=== PATIENT | male | born 1995 | race Caucasian/White ===

== ENCOUNTER → 2017-07-01 | Outpatient (CLI) | payer MEDICARE ==
[~2017-07-01] MED LIST: AMOXICILLIN500 M2 PO; AMOXICILLIN500 MG PO; AUGMENTIN 875875 MG PO; BENZTROPINE MESY1 MG PO; CLEOCIN150 MG PO; FLEXERIL10 MG PO; FLEXERIL5 MG PO; GABAPENTIN400 MG PO; HALDOL5 MG PO; HYDROCODONE BIT1 T11 PO; IBU800 M1 PO; IBUPROFEN600 MG PO; INVEGA SUSTENN234 MG IM; MOTRIN800 MG PO; Motrin,Rufen800 MG PO; NKHM; PREDNISONE20 M1 PO; TEGRETOL200 MG PO; ULTRAM50 MG PO; ZOFRAN4 MG PO; Zofran4 MG PO
[2017-07-01 11:02] LABS: BASO # 0.1 10*3/uL (0.0-0.1); BASO % 0.8 % (0.0-1.0); EOS # 0.3 10*3/uL (0.0-0.4); EOS % 3.1 % (1.0-4.0); HEMATOCRIT 44.6 % (42.0-52.0); HEMOGLOBIN 14.9 g/dl (14.0-18.0); LYMPH # 2.6 10*3/uL (1.3-4.4); LYMPH % 32.8 % (27.0-41.0); MEAN CELL VOLUME 87.3 fl (80.0-94.0); MEAN CORPUSCULAR HGB 29.2 pg (27.0-31.0); MEAN CORPUSCULAR HGB CONC 33.4 g/dl (33.0-37.0); MEAN PLATELET VOLUME 10.6 fl (9.6-12.3); MONO # 0.7 10*3/uL (0.1-1.0); MONO % 8.3 % (3.0-9.0); NEUT # 4.4 10*3/uL (2.3-7.9); NEUT % 54.7 % (47.0-73.0); PLATELET COUNT AUTOMATED 218 10*3/uL (130-400); RED BLOOD COUNT 5.11 10*6/uL (4.50-5.90); RED CELL DISTRI WIDTH 12.5 % (0-14.5)
[2017-07-01 11:06] LABS: URINE AMPHETAMINES < 1000 (1000ng/ml); URINE BARBITURATES < 200 (200ng/ml); URINE BENZODIAZEPINES < 200 (200ng/ml); URINE CANNABINOIDS (THC) > 50 (50ng/ml); URINE COCAINE < 300 (300ng/ml); URINE METHADONE < 300 (300ng/ml); URINE OPIATES < 300 (300ng/ml)
[2017-07-01 11:07] LABS: URINE PHENCYCLIDINE < 25 (25ng/ml)
[2017-07-01 11:29] LABS: ALBUMIN 3.9 gm/dl (3.1-4.5); ALKALINE PHOSPHATASE 95 U/L (45-117); BILIRUBIN, DIRECT < 0.1 mg/dL (0.0-0.2); BUN 7 mg/dl (7-24); CHLORIDE 106 mmol/L (98-107); CHOLESTEROL 128 mg/dL (<200); CREATININE 0.72 mg/dL (0.70-1.30); FREE T4 1.24 ng/dl (0.76-1.46); HDL CHOLESTEROL 53 mg/dl (40-60); LDL CHOLESTEROL 57 mg/dL (9-159); POTASSIUM 3.3 mmol/L (3.5-5.1); SGOT/AST 15 IU/L (3-35); SGPT/ALT 17 U/L (12-78); SODIUM 142 mmol/L (136-145); T3 UPTAKE 41 % (31-39); TOTAL PROTEIN 7.7 gm/dL (6.4-8.2); TRIGLYCERIDES 91 mg/dl (<150); VLDL CHOLESTEROL 18 mg/dL (6-40)
== END | disposition home or self-care (01) ==
LOC: LAB 10:25
PROVIDERS: Nurse Practitioner Family
DX: E55.9 Vitamin D deficiency, unspecified (principal); R79.89 Other specified abnormal findings of blood chemistry; Z79.899 Other long term (current) drug therapy

== ENCOUNTER 2017-08-11 08:30 | Emergency (ER) | payer MEDICARE ==
[~2017-08-11] VITALS: Wt 56.7 kg
[2017-08-11 08:41] VITALS: BP 128/74
[2017-08-11 08:50] LABS: BASO # 0.1 10*3/uL (0.0-0.1); BASO % 0.7 % (0.0-1.0); EOS # 0.3 10*3/uL (0.0-0.4); EOS % 2.8 % (1.0-4.0); HEMATOCRIT 44.3 % (42.0-52.0); HEMOGLOBIN 14.9 g/dl (14.0-18.0); LYMPH # 3.2 10*3/uL (1.3-4.4); LYMPH % 35.8 % (27.0-41.0); MEAN CELL VOLUME 87.5 fl (80.0-94.0); MEAN CORPUSCULAR HGB 29.4 pg (27.0-31.0); MEAN CORPUSCULAR HGB CONC 33.6 g/dl (33.0-37.0); MONO # 0.8 10*3/uL (0.1-1.0); MONO % 8.5 % (3.0-9.0); NEUT # 4.6 10*3/uL (2.3-7.9); PLATELET COUNT AUTOMATED 218 10*3/uL (130-400); RED BLOOD COUNT 5.06 10*6/uL (4.50-5.90); RED CELL DISTRI WIDTH 12.9 % (0-14.5); WHITE BLOOD COUNT 8.8 10*3/uL (4.8-10.8)
[2017-08-11 09:07] LABS: ALBUMIN 4.2 gm/dl (3.1-4.5); ALKALINE PHOSPHATASE 86 U/L (45-117); BUN 9 mg/dl (7-24); CHLORIDE 104 mmol/L (98-107); CREATININE 0.75 mg/dL (0.70-1.30); ETHYL ALCOHOL < 3.0 mg/dl (<3); POTASSIUM 3.9 mmol/L (3.5-5.1); SGOT/AST 18 IU/L (3-35); SGPT/ALT 21 U/L (12-78); SODIUM 141 mmol/L (136-145); TOTAL PROTEIN 7.8 gm/dL (6.4-8.2)
[2017-08-11 09:44] LABS: URINE AMPHETAMINES < 1000 (1000ng/ml); URINE BARBITURATES < 200 (200ng/ml); URINE BENZODIAZEPINES < 200 (200ng/ml); URINE CANNABINOIDS (THC) > 50 (50ng/ml); URINE COCAINE < 300 (300ng/ml); URINE METHADONE < 300 (300ng/ml); URINE OPIATES < 300 (300ng/ml)
[2017-08-11 09:45] LABS: URINE PHENCYCLIDINE < 25 (25ng/ml)
[2017-08-11 10:09] LABS: BILIRUBIN NEGATIVE (NEGATIVE); BLOOD NEGATIVE (NEGATIVE); CLARITY CLOUDY (CLEAR); COLOR YELLOW (YELLOW); GLUCOSE NEGATIVE (NEGATIVE); KETONE NEGATIVE (NEGATIVE); LEUKO ESTERASE NEGATIVE (NEGATIVE); NITRITE NEGATIVE (NEGATIVE); SPECIFIC GRAVITY 1.015 (1.005-1.030); UROBILINOGEN 0.2 E.U./dl (0.2-1.0)
[2017-08-11 10:24] LABS: EPITHELIAL CELLS 0-2
== END 2017-08-11 18:48 | disposition short-term general hospital (02) ==
LOC: ED 08:30
PROVIDERS: Emergency Medicine
DX: F25.9 Schizoaffective disorder, unspecified (principal); G89.29 Other chronic pain; G51.0 Bell's palsy; F32.9 Major depressive disorder, single episode, unspecified; F17.200 Nicotine dependence, unspecified, uncomplicated; Z91.030 Bee allergy status; Z79.899 Other long term (current) drug therapy

== ENCOUNTER 2018-02-21 02:09 | Inpatient (IN) | payer MEDICARE ==
[~2018-02-21] VITALS: Ht 162.6 cm; Wt 52.9 kg
[2018-02-21] VITALS (12 sets, daily range): BP systolic 88–110; BP diastolic 40–63
--- NOTE | ~2018-02-21 | CON ---
[place], [place] REPORT OF CONSULTATION NAME: MORALES ALLEN UNIT #: [id number] ROOM: [place] [id number] DOCTOR: ROLANDO JOHNSTON MD BIRTHDATE: [birth year] DOS: 02/21/2018 CHIEF COMPLAINT: "I tried to hurt myself, but I am okay." HISTORY OF PRESENT ILLNESS: This is a 22-year-old male who was admitted after an apparent suicide attempt. The patient took a handful of Zoloft as well as some Haldol. The patient has a lengthy psychiatric history dating back to the age of 3 with multiple suicide attempts, psychiatric admissions and medication trials. He reports ongoing depressive symptoms for the last year, stating that he has been on and off his medicine during this period of time and has not been compliant with followup. Most recently, [facility] The last time he remembers feeling better was approximately a year and a half to two years ago. Complicating matters recently was a recent breakup with a girlfriend and he states that this is one of the things that plunged him deeper into depression and made him impulsively overdosed. He does endorse poor sleep, but has good appetite. He lacks energy and desire to do things. He is motivated; however, to get better and states he would be willing to follow up with Kiarra Cardona and currently denies suicidal thoughts, stating that this was a dumb thing to do and he is willing to attempt to get help again. PAST MEDICAL HISTORY: Remarkable for a significant history of cannabis abuse. He does not drink alcohol. He is a cigarette smoker as well. STRENGTHS: He has good verbal skills. He is healthy and he has a supportive environment. MENTAL STATUS: He is an alert, somewhat somnolent from lack of sleep, but he was actually able to be engaging. He convincingly denies suicidal thoughts and voices positive plans for the future. He does endorse multiple neurovegetative symptoms. He denies theresa or hypomania and currently denies any auditory or visual hallucinations. Memory for the most part is intact. DIAGNOSES: Major depression, recurrent, severe, rule out bipolar disorder, also diagnosed dysthymic disorder and cannabis dependence. PLAN: I will start him on Remeron 15 mg at bedtime. I would recommend that he follow up very quickly with [facility]. Also, he should get a counselor through mental health as well and a director case management. I do not see the need for future psychiatric admission at this time. [place], [place] REPORT OF CONSULTATION NAME: MORALES ALLEN UNIT #: [id number] ROOM: [place] [address] DOCTOR: ROLANDO JOHNSTON MD BIRTHDATE: [birth year] ROLANDO JOHNSTON MD CM:CONSTR:REPORT OF CONSULTATION 102 02/21/182056 interface
[2018-02-21 02:25] LABS: BASO # 0.1 10*3/uL (0.0-0.1); BASO % 0.6 % (0.0-1.0); EOS # 0.2 10*3/uL (0.0-0.4); EOS % 2.7 % (1.0-4.0); HEMATOCRIT 40.3 % (42.0-52.0); HEMOGLOBIN 13.5 g/dl (14.0-18.0); LYMPH # 3.2 10*3/uL (1.3-4.4); LYMPH % 40.3 % (27.0-41.0); MEAN CORPUSCULAR HGB 29.5 pg (27.0-31.0); MEAN CORPUSCULAR HGB CONC 33.5 g/dl (33.0-37.0); MEAN PLATELET VOLUME 10.8 fl (9.6-12.3); MONO # 0.7 10*3/uL (0.1-1.0); MONO % 8.8 % (3.0-9.0); NEUT # 3.8 10*3/uL (2.3-7.9); NEUT % 47.5 % (47.0-73.0); PLATELET COUNT AUTOMATED 168 10*3/uL (130-400); RED BLOOD COUNT 4.58 10*6/uL (4.50-5.90); RED CELL DISTRI WIDTH 12.4 % (0-14.5)
[2018-02-21 02:41] LABS: ACETAMINOPHEN (TYLENOL) < 2.0 ug/ml (10-30); ALKALINE PHOSPHATASE 75 U/L (45-117); BUN 7 mg/dl (7-24); CHLORIDE 108 mmol/L (98-107); ETHYL ALCOHOL < 3.0 mg/dl (<3); POTASSIUM 3.3 mmol/L (3.5-5.1); SGOT/AST 18 IU/L (3-35); SGPT/ALT 18 U/L (12-78); SODIUM 142 mmol/L (136-145); TOTAL PROTEIN 6.9 gm/dL (6.4-8.2)
[2018-02-21 02:45] LABS: BILIRUBIN NEGATIVE (NEGATIVE); BLOOD NEGATIVE (NEGATIVE); CLARITY CLEAR (CLEAR); COLOR YELLOW (YELLOW); GLUCOSE NEGATIVE (NEGATIVE); KETONE NEGATIVE (NEGATIVE); LEUKO ESTERASE NEGATIVE (NEGATIVE); NITRITE NEGATIVE (NEGATIVE); PH 7.5 (5.0-9.0); UROBILINOGEN 0.2 E.U./dl (0.2-1.0)
[2018-02-21 02:50] LABS: BACTERIA 1+; WBC 0-2 wbc/hpf (0-5)
[2018-02-21 02:53] LABS: URINE AMPHETAMINES < 1000 (1000ng/ml); URINE BARBITURATES < 200 (200ng/ml); URINE BENZODIAZEPINES < 200 (200ng/ml); URINE CANNABINOIDS (THC) > 50 (50ng/ml); URINE COCAINE < 300 (300ng/ml); URINE METHADONE < 300 (300ng/ml); URINE OPIATES < 300 (300ng/ml); URINE PHENCYCLIDINE < 25 (25ng/ml)
[2018-02-22] VITALS: BP 92/45
[2018-02-22 04:00] VITALS: BP 98/64
[2018-02-22 06:11] LABS: BASO % 0.7 % (0.0-1.0); EOS # 0.2 10*3/uL (0.0-0.4); EOS % 3.5 % (1.0-4.0); HEMATOCRIT 39.2 % (42.0-52.0); HEMOGLOBIN 12.6 g/dl (14.0-18.0); LYMPH # 3.1 10*3/uL (1.3-4.4); LYMPH % 50.6 % (27.0-41.0); MEAN CELL VOLUME 90.1 fl (80.0-94.0); MEAN CORPUSCULAR HGB CONC 32.1 g/dl (33.0-37.0); MEAN PLATELET VOLUME 11.8 fl (9.6-12.3); MONO # 0.4 10*3/uL (0.1-1.0); MONO % 7.1 % (3.0-9.0); NEUT # 2.3 10*3/uL (2.3-7.9); NEUT % 37.9 % (47.0-73.0); PLATELET COUNT AUTOMATED 141 10*3/uL (130-400); RED BLOOD COUNT 4.35 10*6/uL (4.50-5.90); RED CELL DISTRI WIDTH 12.5 % (0-14.5); WHITE BLOOD COUNT 6.1 10*3/uL (4.8-10.8)
[2018-02-22 06:48] LABS: BUN 4 mg/dl (7-24); CHLORIDE 110 mmol/L (98-107); CHOLESTEROL 103 mg/dL (<200); CREATININE 0.51 mg/dL (0.70-1.30); PHOSPHOROUS 4.1 mg/dL (2.5-4.9); POTASSIUM 3.6 mmol/L (3.5-5.1); SODIUM 146 mmol/L (136-145); TRIGLYCERIDES 79 mg/dl (<150); VLDL CHOLESTEROL 16 mg/dL (6-40)
[2018-02-22 06:58] LABS: FREE T4 1.05 ng/dl (0.76-1.46); HDL CHOLESTEROL 48 mg/dl (40-60); LDL CHOLESTEROL 39 mg/dL (9-159); THYROID STIM HORMONE (HS) 0.887 uIU/ml (0.358-4.75)
[2018-02-22 07:27] LABS: VITAMIN D, 25-HYDROXY 24.3 ng/mL (30-100)
[2018-02-22 08:00] VITALS: BP 96/59
[2018-02-22] MEDS ORDERED: MIRTAZAPINE15 M2 PO (09:04)
== END 2018-02-22 09:25 | disposition home or self-care (01) | DRG 918 ==
LOC: ED 02:09 → EDHOLD 03:23 → ICCU 03:36
PROVIDERS: Emergency Medicine Emergency Medical Services; Internal Medicine
DX: T43.222A Poisoning by selective serotonin reuptake inhibitors, intentional self-harm, initial encounter (principal); E83.51 Hypocalcemia; E87.8 Other disorders of electrolyte and fluid balance, not elsewhere classified; T43.4X2A Poisoning by butyrophenone and thiothixene neuroleptics, intentional self-harm, initial encounter; F25.1 Schizoaffective disorder, depressive type; E87.6 Hypokalemia; D64.9 Anemia, unspecified; R00.0 Tachycardia, unspecified; F12.20 Cannabis dependence, uncomplicated; Z71.6 Tobacco abuse counseling; Y92.89 Other specified places as the place of occurrence of the external cause; Z91.030 Bee allergy status

== ENCOUNTER 2018-03-07 11:14 | Emergency (ER) | payer MEDICARE ==
[~2018-03-07] VITALS: Ht 160 cm; Wt 54.4 kg
[~2018-03-07 11:14] MED LIST changes: +MIRTAZAPINE15 M2 PO
[2018-03-07 11:18] VITALS: BP 117/69
[2018-03-07] MEDS ORDERED: AUGMENTIN 875-875 MG PO (11:49)
== END 2018-03-07 12:28 | disposition home or self-care (01) ==
LOC: ED 11:14
DX: S41.152A Open bite of left upper arm, initial encounter (principal); F12.10 Cannabis abuse, uncomplicated; F17.200 Nicotine dependence, unspecified, uncomplicated; Z91.030 Bee allergy status; W54.0XXA Bitten by dog, initial encounter; Y93.H2 Activity, gardening and landscaping; Y92.099 Unspecified place in other non-institutional residence as the place of occurrence of the external cause; Y99.8 Other external cause status

== ENCOUNTER 2018-03-18 06:22 | Emergency (ER) | payer MEDICARE ==
[~2018-03-18] VITALS: Ht 160 cm; Wt 54.4 kg
[~2018-03-18 06:22] MED LIST changes: +AUGMENTIN 875-875 MG PO
[2018-03-18 06:23] VITALS: BP 113/73
[2018-03-18] MEDS ORDERED: ZITHROMAX250 MG PO (07:55)
== END 2018-03-18 08:34 | disposition home or self-care (01) ==
LOC: ED 06:22
DX: J20.9 Acute bronchitis, unspecified (principal); F17.200 Nicotine dependence, unspecified, uncomplicated; F12.10 Cannabis abuse, uncomplicated; Z91.030 Bee allergy status

== ENCOUNTER 2018-04-24 00:16 | Emergency (ER) | payer MEDICARE ==
[~2018-04-24] VITALS: Ht 160 cm; Wt 54.4 kg
[~2018-04-24 00:16] MED LIST changes: +ZITHROMAX250 MG PO
[2018-04-24 00:17] VITALS: BP 120/60
[2018-04-24 00:54] LABS: BILIRUBIN NEGATIVE (NEGATIVE); BLOOD NEGATIVE (NEGATIVE); CLARITY CLEAR (CLEAR); COLOR YELLOW (YELLOW); GLUCOSE NEGATIVE (NEGATIVE); KETONE NEGATIVE (NEGATIVE); LEUKO ESTERASE NEGATIVE (NEGATIVE); NITRITE NEGATIVE (NEGATIVE); UROBILINOGEN 0.2 E.U./dl (0.2-1.0)
[2018-04-24 01:04] LABS: EPITHELIAL CELLS 0-2; WBC 0-2 wbc/hpf (0-5)
[2018-04-24] MEDS ORDERED: [UNRECOGNIZED DRUG - OTHER] T (01:19)
== END 2018-04-24 01:43 | disposition home or self-care (01) ==
LOC: ED 00:16
PROVIDERS: Physician Assistant
DX: B35.4 Tinea corporis (principal); F17.200 Nicotine dependence, unspecified, uncomplicated; Z91.030 Bee allergy status

== ENCOUNTER 2018-06-16 20:48 | Emergency (ER) | payer MEDICARE ==
[~2018-06-16] VITALS: Ht 160 cm; Wt 54.4 kg
[~2018-06-16 20:48] MED LIST changes: +[UNRECOGNIZED DRUG - OTHER] T
[2018-06-16 20:51] VITALS: BP 115/64
[2018-06-16] MEDS ORDERED: AMOXICILLIN500 M2 PO (21:17)
== END 2018-06-16 21:20 | disposition home or self-care (01) ==
LOC: ED 20:48
DX: K02.9 Dental caries, unspecified (principal); Z91.030 Bee allergy status; Z87.891 Personal history of nicotine dependence

== ENCOUNTER 2018-07-13 03:06 | Emergency (ER) | payer OTHER ==
[~2018-07-13] VITALS: Ht 160 cm; Wt 54.4 kg
[2018-07-13 03:09] VITALS: BP 94/45
[2018-07-13] MEDS ORDERED: IBU800 MG PO (03:11)
[2018-07-13] MEDS ORDERED: CLINDAMYCIN150 MG PO (03:11)
== END 2018-07-13 03:49 | disposition home or self-care (01) ==
LOC: ED 03:06
DX: K08.89 Other specified disorders of teeth and supporting structures (principal); Z91.030 Bee allergy status; Z87.891 Personal history of nicotine dependence

== ENCOUNTER 2018-09-09 12:24 | Emergency (ER) | payer OTHER ==
[~2018-09-09] VITALS: Ht 160 cm; Wt 54.4 kg
[~2018-09-09 12:24] MED LIST changes: +CLINDAMYCIN150 MG PO; +IBU800 MG PO
[2018-09-09 12:25] VITALS: BP 118/66
== END 2018-09-09 14:27 | disposition home or self-care (01) ==
LOC: ED 12:24
DX: S09.90XA Unspecified injury of head, initial encounter (principal); H92.03 Otalgia, bilateral; Z91.030 Bee allergy status; F17.200 Nicotine dependence, unspecified, uncomplicated; Z79.2 Long term (current) use of antibiotics; Z79.899 Other long term (current) drug therapy; Y04.2XXA Assault by strike against or bumped into by another person, initial encounter; Y93.01 Activity, walking, marching and hiking; Y92.89 Other specified places as the place of occurrence of the external cause; Y99.8 Other external cause status

== ENCOUNTER 2019-06-23 16:43 | Emergency (ER) | payer OTHER ==
[2019-06-23 16:43] VITALS: BP 121/70
== END 2019-06-23 19:01 | disposition home or self-care (01) ==
LOC: ED 16:43
DX: F39 Unspecified mood [affective] disorder (principal); F90.9 Attention-deficit hyperactivity disorder, unspecified type; F25.9 Schizoaffective disorder, unspecified; F31.9 Bipolar disorder, unspecified; F17.200 Nicotine dependence, unspecified, uncomplicated; Z91.030 Bee allergy status

== ENCOUNTER 2019-12-19 23:01 | Emergency (ER) | payer OTHER ==
[~2019-12-19] VITALS: Ht 160 cm; Wt 56.7 kg
[2019-12-19 23:09] VITALS: BP 110/63
== END 2019-12-20 00:30 | disposition home or self-care (01) ==
LOC: ED 23:01
DX: M79.602 Pain in left arm (principal); F17.200 Nicotine dependence, unspecified, uncomplicated; Z91.030 Bee allergy status; X58.XXXA Exposure to other specified factors, initial encounter; Y93.89 Activity, other specified; Y92.89 Other specified places as the place of occurrence of the external cause; Y99.8 Other external cause status

== ENCOUNTER 2020-08-17 10:34 | Emergency (ER) | payer OTHER ==
[~2020-08-17] VITALS: Ht 160 cm; Wt 54.4 kg
[2020-08-17 10:51] VITALS: BP 105/60
== END 2020-08-17 13:15 | disposition left against medical advice (07) ==
LOC: ED 10:34
DX: R50.9 Fever, unspecified (principal); R11.10 Vomiting, unspecified; Z53.21 Procedure and treatment not carried out due to patient leaving prior to being seen by health care provider

== ENCOUNTER 2021-02-03 19:03 | Emergency (ER) | payer MEDICARE ==
[2021-02-03 19:30] VITALS: BP 105/69
== END 2021-02-03 20:14 | disposition home or self-care (01) ==
LOC: ED 19:03
DX: S00.93XA Contusion of unspecified part of head, initial encounter (principal); F17.200 Nicotine dependence, unspecified, uncomplicated; Z91.030 Bee allergy status; Z79.899 Other long term (current) drug therapy; W22.03XA Walked into furniture, initial encounter; Y93.89 Activity, other specified; Y92.89 Other specified places as the place of occurrence of the external cause; Y99.8 Other external cause status

== ENCOUNTER 2021-02-03 22:46 | Emergency (ER) | payer MEDICARE ==
[~2021-02-03] VITALS: Wt 49.9 kg
[2021-02-03 23:14] LABS: BASO # 0.1 10*3/uL (0.0-0.1); BASO % 0.8 % (0.0-1.0); EOS # 0.1 10*3/uL (0.0-0.4); EOS % 1.2 % (1.0-4.0); HEMATOCRIT 41.2 % (42.0-52.0); LYMPH # 1.9 10*3/uL (1.3-4.4); LYMPH % 18.2 % (27.0-41.0); MEAN CELL VOLUME 87.3 fl (80.0-94.0); MEAN CORPUSCULAR HGB 29.2 pg (27.0-31.0); MEAN CORPUSCULAR HGB CONC 33.5 g/dl (33.0-37.0); MONO # 0.7 10*3/uL (0.1-1.0); MONO % 6.3 % (3.0-9.0); NEUT # 7.6 10*3/uL (2.3-7.9); NEUT % 73.2 % (47.0-73.0); PLATELET COUNT AUTOMATED 258 10*3/uL (130-400); RED BLOOD COUNT 4.72 10*6/uL (4.50-5.90); RED CELL DISTRI WIDTH 11.9 % (0-14.5); WHITE BLOOD COUNT 10.4 10*3/uL (4.8-10.8)
[2021-02-03 23:35] LABS: ALBUMIN 3.9 gm/dl (3.1-4.5); ALKALINE PHOSPHATASE 81 U/L (45-117); BUN 12 mg/dl (7-24); CHLORIDE 109 mmol/L (98-107); CPK 135 U/L (39-308); CREATININE 0.75 mg/dL (0.70-1.30); POTASSIUM 3.6 mmol/L (3.5-5.1); SGOT/AST 15 IU/L (3-35); SGPT/ALT 17 U/L (12-78); SODIUM 140 mmol/L (136-145); TOTAL PROTEIN 7.5 gm/dL (6.4-8.2)
[2021-02-03 23:39] LABS: ACETAMINOPHEN (TYLENOL) < 5.0 ug/ml (10-30); ETHYL ALCOHOL < 3.0 mg/dl (<3)
[2021-02-03 23:43] LABS: THYROID STIM HORMONE (HS) 0.407 uIU/ml (0.358-4.75)
== END 2021-02-04 00:21 ==
LOC: ED 22:46
PROVIDERS: Emergency Medicine
DX: R45.851 Suicidal ideations (principal); F32.9 Major depressive disorder, single episode, unspecified; Z91.030 Bee allergy status; Z79.899 Other long term (current) drug therapy

== ENCOUNTER 2024-04-01 14:14 | Emergency (ER) | payer MEDICARE ==
[~2024-04-01] VITALS: Ht 152.4 cm; Wt 63.5 kg
[2024-04-01 14:30] VITALS: BP 118/80
== END 2024-04-01 15:42 | disposition left against medical advice (07) ==
LOC: ED 14:14
DX: R22.0 Localized swelling, mass and lump, head (principal); Z91.030 Bee allergy status; Z53.21 Procedure and treatment not carried out due to patient leaving prior to being seen by health care provider